=== PATIENT | male | born 1945 | race Native Hawaiian/Other Pacific Islander ===

== ENCOUNTER 2016-10-06 01:35 | Emergency (ER) | payer OTHER ==
[~2016-10-06] VITALS: Ht 162.6 cm; Wt 74.8 kg
[~2016-10-06 01:35] MED LIST: AMBIEN5 MG PO; ASA LO-DOSE81 MG PO; LEVO0.08 PO; NEXIUM40 M1 PO; SERT100T PO; SIMV20TA2 PO; ZOLP10TA2 PO
[2016-10-06 02:43] VITALS: BP 173/85; TEMP 97.9
[2016-10-06] MEDS ORDERED: BUDE1AER3 INH (12:06)
== END 2016-10-06 02:55 | disposition home or self-care (01) ==
LOC: ED 01:35
DX: R33.8 Other retention of urine (principal); C64.9 Malignant neoplasm of unspecified kidney, except renal pelvis
CPT/HCPCS: 51702; 80053; 81000; 85027; 85610; 85730; 87088; 99282; 99283; J2175; J2405; Q9963

== ENCOUNTER 2016-10-06 10:39 | Emergency (ER) | payer OTHER ==
[~2016-10-06] VITALS: Ht 162.6 cm; Wt 73.0 kg
[2016-10-06] MEDS ORDERED: BUDE1AER3 INH (12:06)
[2016-10-06 14:54] LABS: PLATELET COUNT 244 K/uL (142-355)
[2016-10-06 15:02] LABS: POTASSIUM 3.9 mmol/L (3.6-5.2)
[2016-10-06 15:46] LABS: PARTIAL THROMBOPLASTIN TIME 32.7 SECONDS (24.5-33.6)
[2016-10-06 19:27] VITALS: BP 122/55; TEMP 98.7
== END 2016-10-06 19:27 | disposition home or self-care (01) ==
LOC: ED 10:39
PROVIDERS: Emergency Medicine
DX: R33.8 Other retention of urine (principal); C64.9 Malignant neoplasm of unspecified kidney, except renal pelvis
CPT/HCPCS: 51702; 80053; 81000; 85027; 85610; 85730; 87088; 99283; J2175; J2405; Q9963

== ENCOUNTER 2016-10-08 05:42 | Emergency (ER) | payer OTHER ==
[~2016-10-08] VITALS: Ht 162.6 cm; Wt 73.0 kg
[~2016-10-08 05:42] MED LIST changes: +BUDE1AER3 INH
[2016-10-08 09:45] VITALS: BP 147/42; TEMP 98
== END 2016-10-08 09:54 | disposition home or self-care (01) ==
LOC: ED 05:42
DX: N13.8 Other obstructive and reflux uropathy (principal); C64.1 Malignant neoplasm of right kidney, except renal pelvis
CPT/HCPCS: 99283

== ENCOUNTER 2016-10-13 01:13 | Emergency (ER) | payer OTHER ==
[~2016-10-13] VITALS: Ht 162.6 cm; Wt 75.8 kg
[2016-10-13 03:29] VITALS: BP 140/83; TEMP 97.9
== END 2016-10-13 03:31 | disposition home or self-care (01) ==
LOC: ED 01:13
DX: N13.8 Other obstructive and reflux uropathy (principal); C64.1 Malignant neoplasm of right kidney, except renal pelvis
CPT/HCPCS: 99283

== ENCOUNTER 2017-07-08 11:19 | Emergency (ER) | payer OTHER ==
[~2017-07-08] VITALS: Ht 162.6 cm; Wt 68.0 kg
[2017-07-08 12:31] LABS: PLATELET COUNT 189 K/uL (142-355)
[2017-07-08 12:50] LABS: POTASSIUM 3.7 mmol/L (3.6-5.2); SODIUM 135 mmol/L (136-145)
[2017-07-08 16:52] VITALS: BP 165/74; TEMP 98.8
== END 2017-07-08 16:54 | disposition home or self-care (01) ==
LOC: ED 11:19
PROVIDERS: Emergency Medicine
DX: D50.8 Other iron deficiency anemias (principal); R39.2 Extrarenal uremia; C22.8 Malignant neoplasm of liver, primary, unspecified as to type; C79.00 Secondary malignant neoplasm of unspecified kidney and renal pelvis
CPT/HCPCS: 36415; 36600; 80053; 81000; 82550; 82805; 83880; 84484; 85027; 85379; 99283; Q9963